=== PATIENT | female | born 1980 | race Caucasian/White ===

== ENCOUNTER → 2025-03-09 07:29 | Outpatient (BNVA) | payer OTHER, SELFPAY | PROVIDERS: PCP Nurse Practitioner Family; Visit Provider Nurse Practitioner Family | DX: I10 Essential (primary) hypertension (principal); R53.83 Other fatigue; M25.50 Pain in unspecified joint; T14.8XXA Other injury of unspecified body region, initial encounter; W57.XXXA Bitten or stung by nonvenomous insect and other nonvenomous arthropods, initial encounter | CPT/HCPCS: 80053; 84439; 84443; 85025; 85651; 86003; 86008; 86140; 86618; 86666; 86757 ==

== ENCOUNTER → 2025-03-13 10:28 | Outpatient (BNVA) | payer OTHER, SELFPAY | PROVIDERS: PCP Nurse Practitioner Family; Visit Provider Nurse Practitioner Family | DX: M25.50 Pain in unspecified joint (principal); R53.83 Other fatigue | CPT/HCPCS: 82607; 83550; 86038; 86431 ==